=== PATIENT | male | born 1940 | race African-American/Black ===

== ENCOUNTER 2017-09-20 17:32 | Inpatient (IN) | payer MEDICARE ==
[2017-09-20] MEDS ORDERED: HYDRALAZINE HCL INJ/PF 20 MG/1 ML SDV IV ONE (18:21)
--- NOTE | 2017-09-20 18:24 | ER Document Report ---
ED Blood Pressure Problem - General Stated Complaint: BLOOD PRESSURE CONCERN Time Seen by Provider: 09/20/17 18:18 Notes: Patient was referred here from his primary care physician's office because his blood pressure is very high. Patient has a history of high blood pressure and is supposed to be taking clonidine, Norvasc, and some other medications for his blood pressure. Patient says that he has actually been out of all of his blood pressure medicines for the past week. He has no symptoms or complaints. Specifically denies headache, neurologic symptoms or deficits, chest pain, abdominal pain, dizziness, shortness of breath, or any other symptoms. Patient says the only reason he went to see his doctor today is because he is scheduled to fly to [place] on Sunday to attend the high school graduation of his granddaughter and he wanted to make sure everything was okay before he took that trip. He has a history of chronic kidney disease and high blood pressure. When he was seen at his primary care physician's office, he was given 0.1 mg clonidine p.o. and referred here. TRAVEL OUTSIDE OF THE [place] IN LAST 30 DAYS: No - Related Data Allergies/Adverse Reactions: No Known Allergies Allergy (Verified 04/09/12 16:27) Past Medical History - Social History Smoking Status: Unknown if Ever Smoked Cigarette use (# per day): No Drug Abuse: None Family History: Reviewed & Not Pertinent - Past Medical History Cardiac Medical History: Reports: Hx Hypercholesterolemia, Hx Hypertension, Hx Peripheral Vascular Disease Neurological Medical History: Denies: Hx Cerebrovascular Accident Endocrine Medical History: Reports: Hx Diabetes Mellitus Type 2, Hx Hypothyroidism Past Surgical History: Reports: Hx Orthopedic Surgery - Back surgery, Other - 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 EENT: Denies eye, ear, nose or mouth or throat pain or other symptoms. CARDIOVASCULAR: Denies chest pain. RESPIRATORY: Denies cough, chest congestion, or shortness of breath. GASTROINTESTINAL: Denies abdominal pain or nausea, vomiting, or diarrhea. GENITOURINARY: Denies difficulty or painful urinating, urinary frequency, blood in urine. MUSCULOSKELETAL: Denies back or neck pain. Denies joint pain or swelling. SKIN: Denies rash or skin lesions. NEUROLOGICAL: Denies LOC or altered mental status. Denies headache. Denies sensory loss or motor deficits. ALL OTHER SYSTEMS REVIEWED AND NEGATIVE. Physical Exam - Vital signs Vitals: Temp Pulse Resp BP Pulse Ox 97.9 F 100 18 215/113 H 98 09/20/17 17:39 09/20/17 17:39 09/20/17 17:39 09/20/17 17:39 09/20/17 17:39 Interpretation: Hypertensive - Notes Notes: PHYSICAL EXAMINATION: GENERAL: Well-appearing, in no acute distress. Extremely high blood pressure. However, patient looks quite comfortable and has no complaints. HEAD: Atraumatic, normocephalic. EYES: Pupils equal round and reactive to light, extraocular movements intact. ENT: oropharynx clear without exudates. Moist mucous membranes. NECK: Normal range of motion, supple. LUNGS: Breath sounds clear and equal bilaterally. HEART: Regular rate and rhythm without murmurs. ABDOMEN: Soft, nontender. No guarding or rebound. No masses. BACK: No tenderness throughout entire back. EXTREMITIES: Normal range of motion without pain. NEUROLOGICAL: Normal speech, normal gait. Normal sensory, motor, and reflex exams. Awake, alert, and oriented x3. Cranial nerves normal. PSYCH: Normal mood, normal affect. SKIN: Warm, dry, no rashes. Course - Re-evaluation Re-evalutation: 09/20/17 18:42 Discussed with patient's primary care provider, Dr. Fam, and patient will be admitted to [facility] for observation and management of his high blood pressure. Dr. Fma requested the patient received hydralazine 10 mg IV which will be ordered. Also wants a CT of his head and a observation admit to [facility]. - Vital Signs Vital signs: Temp Pulse Resp BP Pulse Ox 97.9 F 100 22 H 183/105 H 96 09/20/17 17:39 09/20/17 17:39 09/20/17 18:45 09/20/17 18:45 09/20/17 18:45 - Laboratory Result Diagrams: 09/20/17 18:42 09/20/17 18:42 Laboratory results interpreted by me: 09/20/17 18:42 WBC 11.1 H Hgb 11.9 L MCV 74 L MCH 22.8 L MCHC 30.9 L RDW 15.5 H Seg Neutrophils % 80.0 H Absolute Neutrophils 8.8 H - EKG Interpretation by Me EKG shows normal: Sinus rhythm Rate: Normal Rhythm: NSR [place]/QRS: LAHB/LAFB Voltage: Consistant with LVH Discharge - Discharge Clinical Impression: Hypertension, Hypertensive urgency Condition: Stable Disposition: ADMITTED OBSERVATION Admitting Provider: Fam Unit Admitted: IMCU Referrals: CARROLL FAM MD [Primary Care Provider] - Follow up as needed
[2017-09-20 18:58] LABS: ABSOLUTE BASOPHILS # (AUTO) 0.1 10^3/uL (0.0-0.2); ABSOLUTE EOSINOPHILS # (AUTO) 0.1 10^3/uL (0.0-0.6); ABSOLUTE LYMPHOCYTES (AUTO) 1.5 10^3/uL (0.5-4.7); ABSOLUTE MONOCYTES (AUTO) 0.6 10^3/uL (0.1-1.4); ABSOLUTE NEUT (AUTO) 8.8 10^3/uL (1.7-8.2); BASOPHILS % (AUTO) 0.8 % (0-2); EOSINOPHILS % (AUTO) 0.8 % (0-6); HEMATOCRIT 38.6 % (37.9-51.0); HEMOGLOBIN 11.9 g/dL (13.5-17.0); LYMPHOCYTES % (AUTO) 13.3 % (13-45); MEAN CORPUSCULAR HEMOGLOBIN 22.8 pg (27.0-33.4); MEAN CORPUSCULAR HGB CONC 30.9 g/dL (32.0-36.0); MEAN CORPUSCULAR VOLUME 74 fl (80-97); MONOCYTES % (AUTO) 5.1 % (3-13); PLATELET COUNT 206 10^3/uL (150-450); RED BLOOD COUNT 5.24 10^6/uL (4.35-5.55); RED CELL DISTRIBUTION WIDTH 15.5 % (11.5-14.0); TOTAL CELLS COUNTED % (AUTO) 100 %; WHITE BLOOD COUNT 11.1 10^3/uL (4.0-10.5)
--- NOTE | 2017-09-20 19:11 | RADIOLOGY REPORT (SQ) ---
EXAM DESCRIPTION: CT HEAD WITHOUT COMPLETED DATE/TIME: 09/20/2017 6:54 pm REASON FOR STUDY: Extreme hypertension COMPARISON: 04/09/2012 TECHNIQUE: Axial images acquired through the brain without intravenous contrast. Images reviewed wi th bone, brain and subdural windows. Images stored on PACS. All CT scanners at this facility use dose modulation, iterative reconstruction, and/or weight based d osing when appropriate to reduce radiation dose to as low as reasonably achievable (ALARA). [facility]: Dose Right [facility]: CareDose [facility]: Dose Right [facility]: Teradose 4D [facility]: [employer] RADIATION DOSE: CT Rad equipment meets quality standard of care and radiation dose reduction techniq ues were employed. CTDIvol: 53.2 mGy. DLP: 1124 mGy-cm. mGy. LIMITATIONS: None. FINDINGS: VENTRICLES: Normal. CEREBRUM: No masses. No hemorrhage. No midline shift. Areas of low density in the white matter mos t likely due to chronic micro-vascular ischemic change. No evidence for acute infarction. CEREBELLUM: No masses. No hemorrhage. No alteration of density. No evidence for acute infarction. EXTRAAXIAL SPACES: Mild age-related involutional change. No fluid collections. No masses. ORBITS AND GLOBE: No intra- or extraconal masses. Normal contour of globe without masses. CALVARIUM: No fracture. PARANASAL SINUSES: No fluid or mucosal thickening. SOFT TISSUES: No mass or hematoma. OTHER: No other significant finding. IMPRESSION: No acute intracranial findings. EVIDENCE OF ACUTE STROKE: No TECHNICAL DOCUMENTATION: JOB ID: [id number] [place]-72 Quality ID # [id number]: Final reports with documentation of one or more dose reduction techniques (e.g., Au tomated exposure control, adjustment of the mA and/or kV according to patient size, use of iterative reconstruction technique) 2010 [employer]- All Rights Reserved Reading location - IP/workstation name: [employer]
--- NOTE | 2017-09-20 19:13 | RADIOLOGY REPORT (SQ) ---
EXAM DESCRIPTION: CHEST SINGLE VIEW COMPLETED DATE/TIME: 09/20/2017 7:01 pm REASON FOR STUDY: Extreme hypertension COMPARISON: None. EXAM PARAMETERS: NUMBER OF VIEWS: One view. TECHNIQUE: Single frontal radiographic view of the chest acquired. RADIATION DOSE: NA LIMITATIONS: None. FINDINGS: LUNGS AND PLEURA: No consolidation, masses or pneumothorax. No pleural effusion. MEDIASTINUM AND HILAR STRUCTURES: Enlarged thoracic aorta contour. HEART AND VASCULAR STRUCTURES: Cardiomegaly. BONES: No acute findings. HARDWARE: None in the chest. OTHER: No other significant finding. IMPRESSION: Enlarged thoracic aorta contour, chronic appearing. No acute pulmonary finding. TECHNICAL DOCUMENTATION: JOB ID: [id number] [place]-72 2010 [employer]- All Rights Reserved Reading location - IP/workstation name: [employer]
[2017-09-20] MEDS ORDERED: ACETAMINOPHEN 325 MG TABLET PO PRN (19:31)
[2017-09-20] MEDS ORDERED: HYDRALAZINE HCL INJ/PF 20 MG/1 ML SDV IV PRN (19:37)
[2017-09-20] MEDS ORDERED: INSULIN LISPRO 100 UNIT/ML 3 ML VIAL SUBCUT PRN (19:45)
[2017-09-20] MEDS ORDERED: DEXTROSE 40% GEL 15 GM TUBE PO PRN ×2 (19:45)
[2017-09-20] MEDS ORDERED: DEXTROSE 50%-WATER 25 GM/50 ML DISP.SYRIN IV PRN ×2 (19:45)
[2017-09-20] MEDS ORDERED: GLUCAGON,HUMAN RECOMB 1 MG INJ IM PRN (19:45)
[2017-09-20 19:47] LABS: APPEARANCE,URINE CLEAR; BILIRUBIN,URINE NEGATIVE (NEGATIVE); COLOR,URINE STRAW; GLUCOSE, URINE NEGATIVE (NEGATIVE); KETONES,URINE NEGATIVE (NEGATIVE); LEUKOCYTE ESTERASE,URINE TRACE (NEGATIVE); NITRITE,URINE NEGATIVE (NEGATIVE); PROTEIN,URINE 30 mg/dL (NEGATIVE); URINE SPECIFIC GRAVITY 1.011; UROBILINOGEN,URINE NEGATIVE mg/dL (<2.0)
[2017-09-20 19:58] LABS: ALANINE AMINOTRANSFERASE 16 U/L (21-72); ALBUMIN 3.7 g/dL (3.5-5.0); ALKALINE PHOSPHATASE 192 U/L (38-126); ANION GAP 12 (5-19); ASPARTATE AMINO TRANSFERASE 14 U/L (17-59); BILIRUBIN,DIRECT 0.3 mg/dL (0.0-0.4); BILIRUBIN,TOTAL 0.4 mg/dL (0.2-1.3); BLOOD UREA NITROGEN 22 mg/dL (7-20); CALCIUM 9.1 mg/dL (8.4-10.2); CARBON DIOXIDE 26 mmol/L (22-30); CHLORIDE 107 mmol/L (98-107); GLUCOSE 57 mg/dL (75-110); POTASSIUM 3.5 mmol/L (3.6-5.0); TOTAL PROTEIN 6.9 g/dL (6.3-8.2)
--- NOTE | 2017-09-20 20:04 | EKG REPORT ---
SEVERITY:- ABNORMAL ECG - SINUS RHYTHM LEFT ANTERIOR FASCICULAR BLOCK LEFT VENTRICULAR HYPERTROPHY : Confirmed by: Damon Morocho MD 20-Sep-2017 20:03:46
--- NOTE | 2017-09-20 20:06 | PDOC H&P ---
History of Present Illness Admission Date/PCP: 09/20/17 19:11 CARROLL FAM MD Patient complains of: Uncontrolled hypertension History of Present Illness: DONTRELL CORONADO is a 76 year old male 7aryear-old male presents to my office after one yearFor refill medicationS and pt bp was 220/120 and pt was completely a symptomatic Initially patients do not want to come to the hospitalBut after talking to the patients daughter patients agree to come to the ER Patient also have a chronic kidney disease and chf useto seenephroligy and Patient not seen any doctor since last November pt is a very non-compliance with the diet and taking the medications Patient was given one dose of clonidine in 0.1 mg in my office And pieces purpose of coming down to 190 rangeAnd EMS was called in business brought to the emergency department Past Medical History Cardiac Medical History: Reports: Congestive Heart Failure, DVT, Hyperlipidema, Hypertension, Peripheral Vascular Disease Endocrine Medical History: Reports: Diabetes Mellitus Type 2, Hypothyroidism Renal/ Medical History: Reports: Chronic Kidney Disease Hematology: Reports: Anemia Past Surgical History Past Surgical History: Reports: Orthopedic Surgery - Back surgery, Vascular Surgery - Aneurysm Lt calf, Other - 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 Social History Smoking Status: Unknown if Ever Smoked - Advance Directive Resuscitation Status: Full Code Family History Family History: Reviewed & Not Pertinent Parental Family History Reviewed: Yes Children Family History Reviewed: Yes Sibling(s) Family History Reviewed.: Yes Medication/Allergy Home Medications: Allopurinol [Zyloprim] 300 mg PO DAILY 09/20/17 Amlodipine Besylate [Norvasc 10 mg Tablet] 10 mg PO DAILY 09/20/17 Aspirin [Aspirin EC] 81 mg PO DAILY 09/20/17 Benazepril HCl [Lotensin 20 mg Tablet] 20 mg PO DAILY 09/20/17 Clonidine HCl [Catapres 0.2 mg Tablet] 0.2 mg PO Q12 09/20/17 Clopidogrel Bisulfate [Plavix 75 mg Tablet] 75 mg PO DAILY 09/20/17 Docusate Sodium [Colace 100 mg Capsule] 100 mg PO DAILY 09/20/17 Ferrous Sulfate [Feosol 325 mg Tablet] 325 mg PO TID 09/20/17 Glipizide [Glucotrol 5 mg Tablet] 5 mg PO BID 09/20/17 Hydralazine HCl [Apresoline 50 mg Tablet] 50 mg PO Q8 09/20/17 Levothyroxine Sodium [Synthroid 0.025 mg Tablet] 0.025 mg PO Q6AM 09/20/17 Metoprolol Tartrate [Lopressor 25 mg Tablet] 25 mg PO Q12 09/20/17 [place]-3 Acid Ethyl Esters [Lovaza 1 gm Capsule] 2 gm PO DAILY 09/20/17 Pantoprazole Sodium [Protonix] 40 mg PO DAILY 09/20/17 Potassium Chloride [Klor-Con 10 Meq Tablet.sa] 10 meq PO DAILY 09/20/17 Simvastatin [Zocor 20 mg Tablet] 20 mg PO QHS 09/20/17 Allergies/Adverse Reactions: No Known Allergies Allergy (Verified 04/09/12 16:27) Review of Systems Constitutional: ABSENT: chills, fever(s), headache(s), weight gain, weight loss Eyes: ABSENT: visual disturbances Ears: ABSENT: hearing changes Cardiovascular: ABSENT: chest pain, dyspnea on exertion, edema, orthropnea, palpitations Respiratory: ABSENT: cough, hemoptysis Gastrointestinal: ABSENT: abdominal pain, constipation, diarrhea, hematemesis, hematochezia, nausea, vomiting Genitourinary: ABSENT: dysuria, hematuria Musculoskeletal: ABSENT: joint swelling Integumentary: ABSENT: rash, wounds Neurological: ABSENT: abnormal gait, abnormal speech, confusion, dizziness, focal weakness, syncope Psychiatric: ABSENT: anxiety, depression, homidical ideation, suicidal ideation Endocrine: ABSENT: cold intolerance, heat intolerance, menstrual abnormalities, polydipsia, polyuria Hematologic/Lymphatic: ABSENT: easy bleeding, easy bruising, lymphadenopathy Physical Exam Vital Signs: Temp Pulse Resp BP Pulse Ox 97.9 F 100 19 184/105 H 97 09/20/17 17:39 09/20/17 17:39 09/20/17 19:30 09/20/17 19:30 09/20/17 19:30 General appearance: PRESENT: no acute distress, well-developed, well-nourished Head exam: PRESENT: atraumatic, normocephalic Eye exam: PRESENT: conjunctiva pink, EOMI, PERRLA. ABSENT: scleral icterus Ear exam: PRESENT: normal external ear exam Mouth exam: PRESENT: moist, tongue midline Neck exam: PRESENT: full ROM. ABSENT: carotid bruit, JVD, lymphadenopathy, thyromegaly Respiratory exam: PRESENT: clear to auscultation richie Cardiovascular exam: PRESENT: RRR. ABSENT: diastolic murmur, rubs, systolic murmur Pulses: PRESENT: normal dorsalis pedis pul, +2 pedal pulses bilateral Vascular exam: PRESENT: normal capillary refill GI/Abdominal exam: PRESENT: normal bowel sounds, soft. ABSENT: distended, guarding, mass, organolmegaly, rebound, tenderness Rectal exam: PRESENT: deferred Extremities exam: ABSENT: full ROM, left AKA, right AKA, left BKA, right BKA, calf tenderness, joint swelling, pedal edema, tenderness, other Musculoskeletal exam: PRESENT: ambulatory Neurological exam: PRESENT: alert, awake, oriented to person, oriented to place , oriented to time, oriented to situation, CN II-XII grossly intact. ABSENT: motor sensory deficit Psychiatric exam: PRESENT: appropriate affect, normal mood. ABSENT: homicidal ideation, suicidal ideation Skin exam: PRESENT: dry, intact, warm. ABSENT: cyanosis, rash Results Impressions: Chest X-Ray 09/20/17 18:19 IMPRESSION: Enlarged thoracic aorta contour, chronic appearing. No acute pulmonary finding. Head CT 09/20/17 18:21 IMPRESSION: No acute intracranial findings. EVIDENCE OF ACUTE STROKE: No Assessment & Plan - Diagnosis (1) Hypertensive urgency Is this a current diagnosis for this admission?: Yes Plan: Admit in imcu and and slowly bring the blood pressure is down in concut doctor René (2) Congestive heart failure Qualifiers: Heart failure type: diastolic Heart failure chronicity: chronic Qualified Code(s): I50.32 - Chronic diastolic (congestive) heart failure Is this a current diagnosis for this admission?: Yes Plan: Get a echo cardio gram and consult cardiology (3) PAD (peripheral artery disease) Is this a current diagnosis for this admission?: Yes (4) Hyperlipidemia Qualifiers: Hyperlipidemia type: other hyperlipidemia Qualified Code(s): E78.4 - Other hyperlipidemia Is this a current diagnosis for this admission?: Yes (5) Type 2 diabetes mellitus Qualifiers: Diabetes mellitus complication status: with unspecified complications Is this a current diagnosis for this admission?: Yes (6) Noncompliance Is this a current diagnosis for this admission?: Yes - Time Time Spent: 30 to 50 Minutes Medications reviewed and adjusted accordingly: Yes Anticipated discharge: Home Within: Other - Inpatient Certification Medical Necessity: Need Close Monitoring Due to Risk of Patient Decompensation Post Hospital Care: D/C [employer]st Documentation - Plan Summary Plan Summary: Very extensive discussions with the patients daughter in [place] and patient with this is on the uncontrol hypertension and noncompliance of all medication. Patient is highrisk up a complication include a cardiovascular and cva
[2017-09-20 20:09] LABS: CREATINE KINASE MB 1.17 ng/mL (<4.55); TROPONIN I 0.013 ng/mL
[2017-09-20] MEDS: METOPROLOL TARTRATE 25 MG TABLET PO SCH (21:21)
[2017-09-20] MEDS: CLONIDINE HCL 0.1 MG TABLET PO SCH (21:22)
[2017-09-20] MEDS ORDERED: SIMVASTATIN 10 MG TABLET PO SCH (22:00)
[2017-09-20] MEDS ORDERED: AMLODIPINE BESYLATE 5 MG TABLET PO SCH (22:00)
[2017-09-20] MEDS ORDERED: FAMOTIDINE 20 MG TABLET PO SCH (22:00)
[2017-09-21 04:56] LABS: ABSOLUTE BASOPHILS # (AUTO) 0.1 10^3/uL (0.0-0.2); ABSOLUTE EOSINOPHILS # (AUTO) 0.2 10^3/uL (0.0-0.6); ABSOLUTE LYMPHOCYTES (AUTO) 1.2 10^3/uL (0.5-4.7); ABSOLUTE MONOCYTES (AUTO) 0.5 10^3/uL (0.1-1.4); ABSOLUTE NEUT (AUTO) 5.6 10^3/uL (1.7-8.2); EOSINOPHILS % (AUTO) 2.4 % (0-6); HEMATOCRIT 37.5 % (37.9-51.0); HEMOGLOBIN 11.6 g/dL (13.5-17.0); LYMPHOCYTES % (AUTO) 16.2 % (13-45); MEAN CORPUSCULAR HEMOGLOBIN 22.7 pg (27.0-33.4); MEAN CORPUSCULAR HGB CONC 30.9 g/dL (32.0-36.0); MEAN CORPUSCULAR VOLUME 73 fl (80-97); MONOCYTES % (AUTO) 6.3 % (3-13); PLATELET COUNT 177 10^3/uL (150-450); RED BLOOD COUNT 5.12 10^6/uL (4.35-5.55); RED CELL DISTRIBUTION WIDTH 15.3 % (11.5-14.0); SEGMENTED NEUTROPHILS % (AUTO) 74.1 % (42-78); TOTAL CELLS COUNTED % (AUTO) 100 %; WHITE BLOOD COUNT 7.6 10^3/uL (4.0-10.5)
[2017-09-21 05:13] LABS: ANION GAP 10 (5-19); BLOOD UREA NITROGEN 22 mg/dL (7-20); CALCIUM 8.9 mg/dL (8.4-10.2); CARBON DIOXIDE 26 mmol/L (22-30); CHLORIDE 108 mmol/L (98-107); GLUCOSE 98 mg/dL (75-110); POTASSIUM 3.8 mmol/L (3.6-5.0)
[2017-09-21] MEDS ORDERED: LANSOPRAZOLE 30 MG TAB.RAP.DR PO SCH (06:00)
[2017-09-21] MEDS ORDERED: LEVOTHYROXINE SODIUM 0.025 MG TABLET PO SCH (06:00)
[2017-09-21 08:52] VITALS: BP 159/93
--- NOTE | 2017-09-21 09:28 | RADIOLOGY REPORT (SQ) ---
EXAM DESCRIPTION: CTA CHEST COMPLETED DATE/TIME: 09/21/2017 9:10 am REASON FOR STUDY: enlarge thoracic aorta I50.30 UNSPECIFIED DIASTOLIC (CONGESTIVE) HEART FAILURE COMPARISON: AP chest 09/20/2017 TECHNIQUE: CT angio scan of the chest performed using helical scanning technique with dynamic intrav enous contrast injection. Images reviewed with lung, soft tissue and bone windows. Reconstructed co santos and sagittal MPR images reviewed. Additional 3 dimensional post-processing performed to develop Maximal Intensity Projection images ([place] P) through the pulmonary arteries and thoracic aorta. All images stored on PACS. All CT scanners at this facility use dose modulation, iterative reconstruction, and/or weight based d osing when appropriate to reduce radiation dose to as low as reasonably achievable (ALARA). [facility]: Dose Right [facility]: CareDose [facility]: Dose Right [facility]: Teradose 4D [facility]: [employer] CONTRAST TYPE AND DOSE: contrast/concentration: Isovue 370.00 mg/ml; Total Contrast Delivered: 65.0 ml; Total Saline Delivered: 80.0 ml Contrast bolus optimized for the pulmonary arteries. Not diagnostic for the aorta. RENAL FUNCTION: Creatinine 1.2 RADIATION DOSE: CT Rad equipment meets quality standard of care and radiation dose reduction techniq ues were employed. CTDIvol: 1.9 - 18.8 mGy. DLP: 649 mGy-cm. . LIMITATIONS: None. FINDINGS: Distal to the takeoff of the left subclavian artery, a descending aorta dissecting aneurys m is present continuing through to the abdominal aorta in the field of view. The proximal descending thoracic aorta (just distal to the left subclavian artery origin) measures 5. 8 cm in diameter. Mid thoracic descending aorta 5.4 cm in diameter, distal descending thoracic aorta 5.1 cm in diameter. At the aortic hiatus, the aorta measures 4.5 cm in diameter. The thoracic aortic dissection does not appear to involve the great vessels or ascending thoracic aor ta. Ascending aorta measures 4.1 cm in greatest diameter. The dissection extends into the celiac origin on axial image 122, with the majority of inflow to the celiac artery coming from the true lumen. The superior mesenteric artery and right renal artery arise off the true lumen of the upper abdominal aorta. The left renal artery originates off the false lumen of the upper abdominal aorta. Left kidney profu sheryl is decreased compared to the right, with poor contrast enhancement during the arterial contrast bolus. There is left ventricular hypertrophy with thickening of the left ventricular myocardium on axial peter ges 64-76. No pericardial effusion There is trace left pleural fluid which measures near water density. This report was called to Dr. Fam as a critical finding, 0900 hours 09/21/2017. LUNGS AND PLEURA: Trace left pleural fluid. No pneumothorax. No right pleural effusion. No focal i nfiltrates. AORTA AND GREAT VESSELS: As above HEART: As above No significant coronary artery calcifications. PULMONARY ARTERIES: Limited contrast bolus. No gross proximal pulmonary artery emboli HILAR AND MEDIASTINAL STRUCTURES: No identified masses or abnormal nodes. HARDWARE: None in the chest. UPPER ABDOMEN: As above THYROID AND OTHER SOFT TISSUES: No masses. No adenopathy. BONES: No acute or significant finding. 3D MIPS: Confirm above findings. 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 COMMENT: Pertinent findings on the imaging study reported as a CRITICAL RESULT to CARROLL FAM MD at09:00 on 09/21/2017. Category of Critical Result: Dissecting descending thoracic aortic aneurysm Quality ID # [id number]: Final reports with documentation of one or more dose reduction techniques (e.g., Au tomated exposure control, adjustment of the mA and/or kV according to patient size, use of iterative reconstruction technique) TECHNICAL DOCUMENTATION: JOB ID: [id number] [employer]- All Rights Reserved Reading location - IP/workstation name: [email or web address]
[2017-09-21] MEDS ORDERED: LABETALOL HCL INJ 20 MG/4 ML DISP.SYRIN IV ONE (09:32)
[2017-09-21] MEDS: METOPROLOL TARTRATE 25 MG TABLET PO SCH (09:40)
[2017-09-21] MEDS: CLONIDINE HCL 0.1 MG TABLET PO SCH (09:41)
[2017-09-21] MEDS ORDERED: OMEGA-3 ACID ETHYL ESTERS 1 GM CAPSULE PO SCH (10:00)
[2017-09-21] MEDS ORDERED: ALLOPURINOL 300 MG TABLET PO SCH (10:00)
[2017-09-21] MEDS ORDERED: DOCUSATE SODIUM 100 MG CAPSULE PO SCH ×2 (10:00)
[2017-09-21] MEDS ORDERED: ASPIRIN 81 MG TABLET, ENT COATED PO SCH (10:00)
[2017-09-21] MEDS ORDERED: GLIPIZIDE 5 MG TABLET PO SCH (10:00)
[2017-09-21] MEDS ORDERED: FERROUS SULFATE 325 MG TABLET PO SCH (10:00)
[2017-09-21] MEDS ORDERED: CLOPIDOGREL BISULFATE 75 MG TABLET PO SCH (10:00)
[2017-09-21] MEDS ORDERED: ENOXAPARIN SODIUM INJ 30 MG/0.3 ML DISP.SYRIN SUBCUT SCH (10:00)
--- NOTE | 2017-09-21 10:16 | PDOC TRANSFER SUMMARY ---
General Admission Date/PCP: 09/20/17 19:31 CARROLL FAM MD Transfer Date: 09/21/17 Accepting Facility: [facility] Resuscitation Status: Full Code - Transfer Diagnosis (1) Hypertensive urgency Is this a current diagnosis for this admission?: Yes Diagnosis Summary: Routine general exam currently Dr. Merritt put the labetalol drip (2) Congestive heart failure Is this a current diagnosis for this admission?: Yes (3) PAD (peripheral artery disease) Is this a current diagnosis for this admission?: Yes (4) Hyperlipidemia Is this a current diagnosis for this admission?: Yes (5) Type 2 diabetes mellitus Is this a current diagnosis for this admission?: Yes (6) Noncompliance Is this a current diagnosis for this admission?: Yes (7) Dissecting aortic aneurysm, thoracic Is this a current diagnosis for this admission?: Yes Diagnosis Summary: As per discussed with the cardiothoracic department and the CT surgeon Dr. Eduardo Galeana at [facility] And patient is currently completely asymptomatic - Transfer Medications Home Medications: Allopurinol [Zyloprim] 300 mg PO DAILY 09/20/17 Amlodipine Besylate [Norvasc 10 mg Tablet] 10 mg PO DAILY 09/20/17 Aspirin [Aspirin EC] 81 mg PO DAILY 09/20/17 Benazepril HCl [Lotensin 20 mg Tablet] 20 mg PO DAILY 09/20/17 Clonidine HCl [Catapres 0.2 mg Tablet] 0.2 mg PO Q12 09/20/17 Clopidogrel Bisulfate [Plavix 75 mg Tablet] 75 mg PO DAILY 09/20/17 Docusate Sodium [Colace 100 mg Capsule] 100 mg PO DAILY 09/20/17 Ferrous Sulfate [Feosol 325 mg Tablet] 325 mg PO TID 09/20/17 Glipizide [Glucotrol 5 mg Tablet] 5 mg PO BID 09/20/17 Hydralazine HCl [Apresoline 50 mg Tablet] 50 mg PO Q8 09/20/17 Levothyroxine Sodium [Synthroid 0.025 mg Tablet] 0.025 mg PO Q6AM 09/20/17 Metoprolol Tartrate [Lopressor 25 mg Tablet] 25 mg PO Q12 09/20/17 [place]-3 Acid Ethyl Esters [Lovaza 1 gm Capsule] 2 gm PO DAILY 09/20/17 Pantoprazole Sodium [Protonix] 40 mg PO DAILY 09/20/17 Potassium Chloride [Klor-Con 10 Meq Tablet.sa] 10 meq PO DAILY 09/20/17 Simvastatin [Zocor 20 mg Tablet] 20 mg PO QHS 09/20/17 Furosemide [Furosemide] 20 mg PO DAILY 09/21/17 Transfer Medications: Current Medications Acetaminophen (Tylenol 325 Mg Tablet) 650 mg PO Q4HP PRN PRN Reason: FOR PAIN Stop: 10/20/17 19:30 Allopurinol (Zyloprim 300 Mg Tablet) 300 mg PO DAILY MEHREEN Stop: 10/21/17 09:59 Aspirin (Ecotrin 81 Mg Ec Tablet) 81 mg PO DAILY MEHREEN Stop: 10/21/17 09:59 Clonidine (Catapres 0.1 Mg Tablet) 0.1 mg PO Q12 MEHREEN Stop: 10/20/17 21:59 Last Admin: 09/21/17 09:41 Dose: 0.1 mg Clopidogrel Bisulfate (Plavix 75 Mg Tablet) 75 mg PO DAILY MEHREEN Stop: 10/21/17 09:59 Dextrose (Dextrose Inj 50% Syringe (25 Gm/50 Ml)) 12.5 gm IV PRN PRN; Protocol PRN Reason: FOR BG 50-69 IN ALERT PATIENT Stop: 10/20/17 19:44 Dextrose (Dextrose Inj 50% Syringe (25 Gm/50 Ml)) 25 gm IV PRN PRN; Protocol PRN Reason: PER PROTOCOL Stop: 10/20/17 19:44 Docusate Sodium (Colace 100 Mg Capsule) 100 mg PO DAILY MEHREEN Stop: 10/21/17 09:59 Docusate Sodium (Colace 100 Mg Capsule) 100 mg PO DAILY MEHREEN Stop: 10/21/17 09:59 Enoxaparin Sodium (Lovenox Inj 30 Mg/0.3 Ml Disp.Syrin) 30 mg SUBCUT DAILY MEHREEN Stop: 10/21/17 09:59 Famotidine (Pepcid 20 Mg Tablet) 20 mg PO Q12 MEHREEN Stop: 10/20/17 21:59 Last Admin: 09/20/17 21:22 Dose: 20 mg Ferrous Sulfate (Feosol 325 Mg Tablet) 325 mg PO TID MEHREEN Stop: 10/21/17 09:59 Glipizide (Glucotrol 5 Mg Tablet) 5 mg PO BID MEHREEN Stop: 10/21/17 09:59 Glucagon (Glucagen Inj 1 Mg Vial) 1 mg IM PRN PRN; Protocol PRN Reason: Evaluate for BG < 70 Stop: 10/20/17 19:44 Glucose (Glutose 40% Gel 15 Gm Tube) 15 gm PO PRN PRN; Protocol PRN Reason: FOR BG 50-69 IN ALERT PATIENT Stop: 10/20/17 19:44 Glucose (Glutose 40% Gel 15 Gm Tube) 30 gm PO PRN PRN; Protocol PRN Reason: FOR BG < 50 IN ALERT PATIENT Stop: 10/20/17 19:44 Hydralazine HCl (Apresoline Inj/Pf 20 Mg/1 Ml Sdv) 10 mg IV Q4HP PRN PRN Reason: GIVE FOR SBP > [] Stop: 10/20/17 19:36 Insulin Human Lispro (Humalog Insulin 100 Unit/1 Ml 3 Ml Vial) 0 - 12 unit SUBCUT ACHSP PRN; Protocol PRN Reason: PER PROTOCOL Stop: 10/20/17 19:44 Lansoprazole (Prevacid 30 Mg Odt Tablet) 30 mg PO Q6AM MEHREEN Stop: 10/21/17 05:59 Last Admin: 09/21/17 05:47 Dose: 30 mg Levothyroxine Sodium (Synthroid 0.025 Mg Tablet) 0.025 mg PO Q6AM MEHREEN Stop: 10/21/17 05:59 Last Admin: 09/21/17 05:48 Dose: 0.025 mg Metoprolol Tartrate (Lopressor 25 Mg Tablet) 25 mg PO Q12 MEHREEN Stop: 10/20/17 21:59 Last Admin: 09/21/17 09:40 Dose: 25 mg [id number] Ethyl Esters (Lovaza 1 Gm Capsule) 2 gm PO DAILY MEHREEN Stop: 10/21/17 09:59 Simvastatin (Zocor 10 Mg Tablet) 20 mg PO QHS MEHREEN Stop: 10/20/17 21:59 Last Admin: 09/20/17 21:22 Dose: 20 mg - Allergies Allergies/Adverse Reactions: No Known Allergies Allergy (Verified 04/09/12 16:27) - Diet/Activity Discharge Diet: Cardiac, Diabetic Hospital Course Hospital Course: This is a 76-year-old male very noncompliance came to the office yesterday with the blood pressure was 220/110 initially patient refused to go to the hospital patient was completely asymptomatic and very extensive discussions with the patient's daughter and then patients agree to go to the hospital and patients went to the emergency departmentPatient is giving the clonidine and hydralazine and patient's blood pressure is coming down to the 190 range and patient admitting in the hospital for further evaluations In the morning patient's blood pressure is currently 160 range patient still completely asymptomatic but patient have a all other workup is ordered including the CT of the head was negative and patient did a chest x-ray done with so some enlarged thoracic aorta and order the CT angiogramWith so that dissecting thoracic aneurysms Patient's denied any chest pain denied any shortness of the breath Patient at this point set discussed with the CT surgeon in [place] and transfer and patient's trip to the ICU for close monitoring and discussed with the Dr. Merritt and put on the labatoll drip to control the blood pressure This with the patient and the daughter she lives in [place] understand very well Patient also have history of the peripheral vascular disease and he used to see a vascular surgeon at [facility] Physical Exam Vital Signs: Temp Pulse Resp BP Pulse Ox 97.8 F 70 18 159/93 H 97 09/21/17 07:18 09/21/17 07:18 09/21/17 07:18 09/21/17 07:18 09/21/17 07:18 Intake & Output 09/20/17 09/21/17 09/22/17 06:59 06:59 06:59 Intake Total 420 Output Total 350 Balance 70 General appearance: PRESENT: no acute distress, well-developed, well-nourished Head exam: PRESENT: atraumatic, normocephalic Eye exam: PRESENT: conjunctiva pink, EOMI, PERRLA. ABSENT: scleral icterus Ear exam: PRESENT: normal external ear exam Mouth exam: PRESENT: moist, tongue midline Neck exam: ABSENT: carotid bruit, JVD, lymphadenopathy, thyromegaly Respiratory exam: PRESENT: clear to auscultation richie. ABSENT: rales, rhonchi, wheezes Cardiovascular exam: PRESENT: RRR. ABSENT: diastolic murmur, rubs, systolic murmur Pulses: PRESENT: normal dorsalis pedis pul Vascular exam: PRESENT: normal capillary refill GI/Abdominal exam: PRESENT: normal bowel sounds, soft. ABSENT: distended, guarding, mass, organolmegaly, rebound, tenderness Rectal exam: PRESENT: deferred Extremities exam: PRESENT: full ROM. ABSENT: calf tenderness, clubbing, pedal edema Neurological exam: PRESENT: alert, awake, oriented to person, oriented to place , oriented to time, oriented to situation, CN II-XII grossly intact. ABSENT: motor sensory deficit Psychiatric exam: PRESENT: appropriate affect, normal mood. ABSENT: homicidal ideation, suicidal ideation Skin exam: PRESENT: dry, intact, warm. ABSENT: cyanosis, rash Results Laboratory Results: 09/21/17 04:40 09/21/17 04:40 09/21/17 09/21/17 04:40 04:40 WBC 7.6 RBC 5.12 Hgb 11.6 L Hct 37.5 L MCV 73 L MCH 22.7 L MCHC 30.9 L RDW 15.3 H Plt Count 177 Seg Neutrophils % 74.1 Lymphocytes % 16.2 Monocytes % 6.3 Eosinophils % 2.4 Basophils % 1.0 Absolute Neutrophils 5.6 Absolute Lymphocytes 1.2 Absolute Monocytes 0.5 Absolute Eosinophils 0.2 Absolute Basophils 0.1 Sodium 144.0 Potassium 3.8 Chloride 108 H Carbon Dioxide 26 Anion Gap 10 BUN 22 H Creatinine 1.17 Est GFR ( Amer) > 60 Est GFR (Non-Af Amer) > 60 Glucose 98 Calcium 8.9 Impressions: Chest X-Ray 09/20/17 18:19 IMPRESSION: Enlarged thoracic aorta contour, chronic appearing. No acute pulmonary finding. Head CT 09/20/17 18:21 IMPRESSION: No acute intracranial findings. EVIDENCE OF ACUTE STROKE: No Chest/Abdomen CTA 09/21/17 00:00 IMPRESSION: Descending thoracic aortic dissecting aneurysm extending into the upper abdominal visceral vessels. Plan Time Spent: Greater than 30 Minutes - Patient's currently close monitor in ICU currently asymptomatic and the patient's transferred to the tertiary centers
--- NOTE | 2017-09-21 12:31 | PDOC CONSULTATION ---
Consultation Consult Date: 09/21/17 Consult reason:: Hypertension emergency and dissecting aortic aneurysm History of Present Illness Admission Date/PCP: 09/20/17 19:31 CARROLL FAM MD History of Present Illness: DONTRELL CORONADO is a 76 year old maleWith a long-standing history of diabetes mellitus hypertension and severe noncompliance was admitted yesterday by Dr. Fam for severe uncontrolled hypertension.Patient had seen Dr. Fam for a routine visit and was found to be severely hypotensive and completely asymptomatic. He admits to severe noncompliance with his medications.His initial admission blood pressures were around 230/120 approximately. He was admitted and put on appropriate medications and he has responded well.This morning his blood pressures was around 150 systolic.He remained completely asymptomatic.Denies any history of headaches, chest pain or shortness of breath. No abdominal pains. Incidental chest x-ray showed a widened mediastinum. This prompted Dr. Fam to order a CT angiogram which showed that he had a dissecting descending thoracic aortic aneurysm all the way to the upper abdominal vessels.Patient was at this point seen by me and after further discussions was transferred to the ICU. He was given IV labetalol and infusion and then arrangements have been made by Dr. Fam for transferring him to [facility] for urgent immediate care.I explained to the patient at great length about his current situation and the severity of the problems. He understands and he did have a few questions.They are all answered to his satisfaction. Past Medical History Cardiac Medical History: Reports: DVT, Hyperlipidemia, Hypertension-primary, Peripheral Vascular Disease Endocrine Medical History: Reports: Diabetes Mellitus Type 2, Hypothyroidism Renal/ Medical History: Reports: Chronic Kidney Disease Stage II Psychiatric Medical History: Denies: Depression Past Surgical History Past Surgical History: Reports: Orthopedic Surgery - Back surgery, Vascular Surgery - Aneurysm Lt calf, Other - 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 Social History Smoking Status: Never Smoker Frequency of Alcohol Use: Rare Hx Recreational Drug Use: No - Advance Directive Resuscitation Status: Full Code Family History Parental Family History Reviewed: Yes - Negative for ESRD. Children Family History Reviewed: No Sibling(s) Family History Reviewed.: No Medication/Allergy Home Medications: Allopurinol [Zyloprim] 300 mg PO DAILY 09/20/17 Amlodipine Besylate [Norvasc 10 mg Tablet] 10 mg PO DAILY 09/20/17 Aspirin [Aspirin EC] 81 mg PO DAILY 09/20/17 Benazepril HCl [Lotensin 20 mg Tablet] 20 mg PO DAILY 09/20/17 Clonidine HCl [Catapres 0.2 mg Tablet] 0.2 mg PO Q12 09/20/17 Clopidogrel Bisulfate [Plavix 75 mg Tablet] 75 mg PO DAILY 09/20/17 Docusate Sodium [Colace 100 mg Capsule] 100 mg PO DAILY 09/20/17 Ferrous Sulfate [Feosol 325 mg Tablet] 325 mg PO TID 09/20/17 Glipizide [Glucotrol 5 mg Tablet] 5 mg PO BID 09/20/17 Hydralazine HCl [Apresoline 50 mg Tablet] 50 mg PO Q8 09/20/17 Levothyroxine Sodium [Synthroid 0.025 mg Tablet] 0.025 mg PO Q6AM 09/20/17 Metoprolol Tartrate [Lopressor 25 mg Tablet] 25 mg PO Q12 09/20/17 [place]-3 Acid Ethyl Esters [Lovaza 1 gm Capsule] 2 gm PO DAILY 09/20/17 Pantoprazole Sodium [Protonix] 40 mg PO DAILY 09/20/17 Potassium Chloride [Klor-Con 10 Meq Tablet.sa] 10 meq PO DAILY 09/20/17 Simvastatin [Zocor 20 mg Tablet] 20 mg PO QHS 09/20/17 Furosemide [Furosemide] 20 mg PO DAILY 09/21/17 Allergies/Adverse Reactions: No Known Allergies Allergy (Verified 04/09/12 16:27) Review of Systems Constitutional: ABSENT: fever(s), headache(s), night sweats, weakness Cardiovascular: ABSENT: chest pain, dyspnea on exertion, edema, orthropnea, palpitations Respiratory: ABSENT: dyspnea, hemoptysis Gastrointestinal: ABSENT: abdominal pain, diarrhea, dysphagia, heartburn Neurological: ABSENT: abnormal movements, abnormal speech, confusion, convulsions, focal weakness, frequent falls Endocrine: ABSENT: cold intolerance Hematologic/Lymphatic: ABSENT: easy bleeding, easy bruising Physical Exam Vital Signs: Temp Pulse Resp BP Pulse Ox 97.8 F 70 18 159/93 H 97 09/21/17 10:24 09/21/17 10:24 09/21/17 10:24 09/21/17 10:24 09/21/17 10:24 Intake & Output 09/20/17 09/21/17 09/22/17 06:59 06:59 06:59 Intake Total 420 Output Total 350 Balance 70 General appearance: PRESENT: no acute distress Eye exam: PRESENT: conjunctiva pink, EOMI Ear exam: PRESENT: normal external ear exam Mouth exam: PRESENT: moist, neck supple Neck exam: ABSENT: lymphadenopathy, meningismus, tenderness, thyromegaly, tracheal deviation Respiratory exam: PRESENT: clear to auscultation richie. ABSENT: crackles, rhonchi Cardiovascular exam: PRESENT: +S1, +S2, systolic murmur Pulses: PRESENT: normal carotid pulses, normal radial pulses, normal femoral pulses GI/Abdominal exam: PRESENT: normal bowel sounds, soft. ABSENT: diminished bowel sounds, organomegaly, tenderness Extremities exam: ABSENT: pedal edema Neurological exam: PRESENT: alert, awake, oriented to person, oriented to place , oriented to time Skin exam: PRESENT: dry. ABSENT: mottled Results Laboratory Results: 09/21/17 04:40 09/21/17 04:40 09/21/17 09/21/17 04:40 04:40 WBC 7.6 RBC 5.12 Hgb 11.6 L Hct 37.5 L MCV 73 L MCH 22.7 L MCHC 30.9 L RDW 15.3 H Plt Count 177 Seg Neutrophils % 74.1 Lymphocytes % 16.2 Monocytes % 6.3 Eosinophils % 2.4 Basophils % 1.0 Absolute Neutrophils 5.6 Absolute Lymphocytes 1.2 Absolute Monocytes 0.5 Absolute Eosinophils 0.2 Absolute Basophils 0.1 Sodium 144.0 Potassium 3.8 Chloride 108 H Carbon Dioxide 26 Anion Gap 10 BUN 22 H Creatinine 1.17 Est GFR ( Amer) > 60 Est GFR (Non-Af Amer) > 60 Glucose 98 Calcium 8.9 Impressions: Chest X-Ray 09/20/17 18:19 IMPRESSION: Enlarged thoracic aorta contour, chronic appearing. No acute pulmonary finding. Head CT 09/20/17 18:21 IMPRESSION: No acute intracranial findings. EVIDENCE OF ACUTE STROKE: No Chest/Abdomen CTA 09/21/17 00:00 IMPRESSION: Descending thoracic aortic dissecting aneurysm extending into the upper abdominal visceral vessels. Assessment & Plan - Diagnosis (1) Dissecting aortic aneurysm, thoracic Is this a current diagnosis for this admission?: Yes Plan: Incidental finding based on a widened mediastinum on his chest x-ray. Patient completely asymptomatic. Patient blood pressures improved compared to yesterday when he was quite high.Discussions were done with the patient and Dr. Fma patient has been begun on IV labetalol and transferred to the ICU while awaiting transfer to tertiary care immediately.Meanwhile he was explained to her about the diagnosis complications, pathology and prognosis. (2) Hypertensive urgency Is this a current diagnosis for this admission?: Yes Plan: Markedly improved. However given his incidental finding of dissecting descending thoracic aortic aneurysm patient being transferred to ICU started on labetalol infusions while awaiting transfer to tertiary care. Advised patient about noncompliance and the consequences. (3) Noncompliance Is this a current diagnosis for this admission?: Yes Plan: Discussed briefly about the consequences of noncompliance in the face of hypertension and diabetes. (4) Type 2 diabetes mellitus Qualifiers: Diabetes mellitus complication status: with unspecified complications Is this a current diagnosis for this admission?: Yes Plan: Advised on tight control.
--- NOTE | 2017-09-21 20:19 | PDOC CONSULTATION ---
Consultation Consult Date: 09/21/17 Attending physician:: CARROLL FAM Consult reason:: Aortic dissection History of Present Illness Admission Date/PCP: 09/20/17 19:31 CARROLL FAM MD Patient complains of: Severe hypertension History of Present Illness: DONTRELL CORONADO is a 76 year old male was admitted through Dr. Fam's office with severe hypertension. On repeated questioning patient denied any chest pain. A chest x-ray had shown widened mediastinum which subsequently was followed with a CTA of the chest. This was positive for dissecting aneurysm. I was asked to help with management while a transfer was pending to [facility]. When I saw the patient this morning, on repeated questioning he denied any chest pain. His blood pressure was noted to be elevated with have BP of 200/100. Patient was noted to be not short of breath. CT scan was reviewed and basically confirms presence of dissection. It was felt that aggressive management of blood pressure is indicated. Nurse was ordered to give labetalol 20 mg IV. Which was given almost immediately. Patient also now been transferred to the unit. I have asked the unit nurse to start esmolol drip per protocol. Patient also received clonidine, regular dose and metoprolol succinate regular dose. I did ask nurses to hold the Norvasc. A 2D echocardiogram was considered but not ordered at it was felt that it might delay appropriate treatment. Past Medical History Cardiac Medical History: Reports: Congestive Heart Failure, DVT, Hyperlipidema, Hypertension, Peripheral Vascular Disease Endocrine Medical History: Reports: Diabetes Mellitus Type 2, Hypothyroidism Renal/ Medical History: Reports: Chronic Kidney Disease Psychiatric Medical History: Denies: Depression Hematology: Reports: Anemia Past Surgical History Past Surgical History: Reports: Orthopedic Surgery - Back surgery, Vascular Surgery - Aneurysm Lt calf, Other - 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 Social History Information Source: Patient Smoking Status: Never Smoker Frequency of Alcohol Use: Rare Hx Recreational Drug Use: No - Advance Directive Resuscitation Status: Full Code Surrogate healthcare decision maker:: Patient's is the surrogate decision-maker Family History Family History: Hypertension Parental Family History Reviewed: Yes Children Family History Reviewed: Yes Sibling(s) Family History Reviewed.: Yes Medication/Allergy Home Medications: Allopurinol [Zyloprim] 300 mg PO DAILY 09/20/17 Amlodipine Besylate [Norvasc 10 mg Tablet] 10 mg PO DAILY 09/20/17 Aspirin [Aspirin EC] 81 mg PO DAILY 09/20/17 Benazepril HCl [Lotensin 20 mg Tablet] 20 mg PO DAILY 09/20/17 Clonidine HCl [Catapres 0.2 mg Tablet] 0.2 mg PO Q12 09/20/17 Clopidogrel Bisulfate [Plavix 75 mg Tablet] 75 mg PO DAILY 09/20/17 Docusate Sodium [Colace 100 mg Capsule] 100 mg PO DAILY 09/20/17 Ferrous Sulfate [Feosol 325 mg Tablet] 325 mg PO TID 09/20/17 Glipizide [Glucotrol 5 mg Tablet] 5 mg PO BID 09/20/17 Hydralazine HCl [Apresoline 50 mg Tablet] 50 mg PO Q8 09/20/17 Levothyroxine Sodium [Synthroid 0.025 mg Tablet] 0.025 mg PO Q6AM 09/20/17 Metoprolol Tartrate [Lopressor 25 mg Tablet] 25 mg PO Q12 09/20/17 [place]-3 Acid Ethyl Esters [Lovaza 1 gm Capsule] 2 gm PO DAILY 09/20/17 Pantoprazole Sodium [Protonix] 40 mg PO DAILY 09/20/17 Potassium Chloride [Klor-Con 10 Meq Tablet.sa] 10 meq PO DAILY 09/20/17 Simvastatin [Zocor 20 mg Tablet] 20 mg PO QHS 09/20/17 Furosemide [Furosemide] 20 mg PO DAILY 09/21/17 Allergies/Adverse Reactions: No Known Allergies Allergy (Verified 04/09/12 16:27) Review of Systems Review of Systems: Please see history of present illness and past medical history as wall. Constitutional: No fever or chills reported. Head : No recent chronic headaches, recent head injury. Eyes: No recent eye pain, diplopia, redness, discharge, acute visual changes. Ears: No recent chronic ear pain, acute hearing loss, ear discharge. Oral cavity: No recent ulcerations, bleeding, oral cavity discomfort. Neck: No recent acute neck pain reported. Hematologic: No recent easy bruising or bleeding or hematologic malignancy reported. Lymphatic: No recent lymphatic malignancy, chronic lymphadenopathy reported yet Cardiovascular system review: See history of present illness. Respiratory system review: No recent chronic cough, hemoptysis, blood clots in the lungs reported. Shortness of breath on exertion Gastrointestinal system review: Negative for any recent acute or chronic abdominal pain, hematemesis, melena, recent change in bowel habits. Genitourinary system review: No recent acute or chronic hematuria, flank pain, UTI etc. reported. Skin system review: Negative for any recent abnormal bruising, no rash, no pruritus reported. Neurologic: No prior history of strokes, mini strokes, seizure disorder. Psychologic: No history of major psychosis or major depression reported. Musculoskeletal: Minor aches and pains reported. No acute joint swelling reported. Endocrine: No recent polyuria, polydipsia, recent heat or cold intolerance. Physical Exam Vital Signs: Temp Pulse Resp BP Pulse Ox 97.8 F 70 18 159/93 H 97 09/21/17 10:24 09/21/17 10:24 09/21/17 10:24 09/21/17 10:24 09/21/17 10:24 Intake & Output 09/20/17 09/21/17 09/22/17 06:59 06:59 06:59 Intake Total 420 Output Total 350 Balance 70 Exam: GENERAL: well-nourished and in no acute distress. Alert and oriented x3 HEAD: Atraumatic, normocephalic. EYES: Pupils equal round and reactive to light, extraocular movements intact, sclera anicteric, conjunctiva are normal. ENT: TMs normal, nares patent, oropharynx clear without exudates. Moist mucous membranes. No oral ulcerations or bleeding gums noted NECK: supple without lymphadenopathy. Trachea is central. No cervical or axillary lymphadenopathy noted. Carotids are 2+, JVD WNL LUNGS: Respiration seems nonlabored, no significant accessory muscle action noted. Breath sounds clear to auscultation bilaterally and equal noted. No wheezes rales or rhonchi noted. No significant dullness noted on percussion. CHEST: Palpation of the chest wall shows no significant chest wall tenderness. No other significant abnormalities noted. HEART: [place] WARP TENSION TESTER, No PSH, 1/6 JORGE L aortic area, 1/6 narayanan systolic murmur mitral area, no rubs, no gallops. ABDOMEN: Soft, no significant tenderness appreciated, normoactive bowel sounds. No guarding, no rebound. No rigidity noted . No masses appreciated. EXTREMITIES: Pedal pulses are 1-2+, no calf tenderness noted. No clubbing or cyanosis. negative pedal edema noted NEUROLOGICAL: Focused neurological exam showed no significant neurologic deficit. Normal speech, no focal weakness appreciated. PSYCH: Normal mood, normal affect. Judgment and insight within normal limits. SKIN: No significant ecchymosis, skin is noted to be warm. MUSCULOSKELETAL EXAM: No significant acute joint swelling noted. Results Laboratory Results: 09/21/17 04:40 09/21/17 04:40 09/21/17 09/21/17 04:40 04:40 WBC 7.6 RBC 5.12 Hgb 11.6 L Hct 37.5 L MCV 73 L MCH 22.7 L MCHC 30.9 L RDW 15.3 H Plt Count 177 Seg Neutrophils % 74.1 Lymphocytes % 16.2 Monocytes % 6.3 Eosinophils % 2.4 Basophils % 1.0 Absolute Neutrophils 5.6 Absolute Lymphocytes 1.2 Absolute Monocytes 0.5 Absolute Eosinophils 0.2 Absolute Basophils 0.1 Sodium 144.0 Potassium 3.8 Chloride 108 H Carbon Dioxide 26 Anion Gap 10 BUN 22 H Creatinine 1.17 Est GFR ( Amer) > 60 Est GFR (Non-Af Amer) > 60 Glucose 98 Calcium 8.9 Impressions: Chest X-Ray 09/20/17 18:19 IMPRESSION: Enlarged thoracic aorta contour, chronic appearing. No acute pulmonary finding. Head CT 09/20/17 18:21 IMPRESSION: No acute intracranial findings. EVIDENCE OF ACUTE STROKE: No Chest/Abdomen CTA 09/21/17 00:00 IMPRESSION: Descending thoracic aortic dissecting aneurysm extending into the upper abdominal visceral vessels. Assessment & Plan - Diagnosis (1) Dissecting aortic aneurysm, thoracic Is this a current diagnosis for this admission?: Yes (2) Hyperlipidemia Qualifiers: Hyperlipidemia type: other hyperlipidemia Qualified Code(s): E78.4 - Other hyperlipidemia Is this a current diagnosis for this admission?: Yes (3) Hypertension Qualifiers: Hypertension type: essential hypertension Qualified Code(s): I10 - Essential (primary) hypertension Is this a current diagnosis for this admission?: Yes (4) Hypertensive urgency Is this a current diagnosis for this admission?: Yes (5) PAD (peripheral artery disease) Is this a current diagnosis for this admission?: Yes (6) Type 2 diabetes mellitus Qualifiers: Diabetes mellitus intermediate insulin use: unspecified intermediate insulin use status Diabetes mellitus complication status: with unspecified complications Qualified Code(s): E11.8 - Type 2 diabetes mellitus with unspecified complications Is this a current diagnosis for this admission?: Yes - Notes Notes: Patient was seen on the third floor and also when he was moved to the unit. On the third floor it was noted that his CT chest showed dissecting aneurysm of the descending thoracic aorta. Patient blood pressure was noted to be extremely elevated. Orders were given for patient to receive IV labetalol 20 mg. Patient also in the process of being transferred to the unit and subsequently to [facility]. Also verbal order was given for the patient to be started on esmolol drip. Nurse was also advised to give patient his home dose of clonidine and metoprolol succinate. Subsequently on transfer to the unit his blood pressure remained very stable and he was transferred without incident in between 2 [facility]. It was felt that patient had a life-threatening emergency. CT scan results were reviewed. Patient's life-threatening condition discussed with the patient. His questions were answered. Patient was subsequently transferred to the unit and to widen to [facility] without any adverse incident. - Time Time Spent: 30 to 50 Minutes - CODE STATUS was discussed, patient remains full code. Surrogate decision-maker unchanged. Multiple medical problems were addressed. More than 50% of the time spent coordinating care, discussing management plans with involved caregivers. Management plans discussed with involved personnels. Medical decision making was of moderate to high complexity , patient's has multiple comorbidities. Medications reviewed and adjusted accordingly: Yes
== END 2017-09-21 11:07 | disposition short-term general hospital (02) | DRG 300 ==
LOC: ER 17:32 → EH 19:11 → OBSVTOIN 19:31 → 3W 20:14 → ICU 09-21 10:04
PROVIDERS: ADMIT Family Medicine; ATTEND Family Medicine
DX: I71.01 Dissection of thoracic aorta (principal); I13.0 Hypertensive heart and chronic kidney disease with heart failure and stage 1 through stage 4 chronic kidney disease, or unspecified chronic kidney disease; I50.32 Chronic diastolic (congestive) heart failure; I16.0 Hypertensive urgency; E11.22 Type 2 diabetes mellitus with diabetic chronic kidney disease; N18.9 Chronic kidney disease, unspecified; E78.5 Hyperlipidemia, unspecified; E11.51 Type 2 diabetes mellitus with diabetic peripheral angiopathy without gangrene; D64.9 Anemia, unspecified; E03.9 Hypothyroidism, unspecified; Z79.82 Long term (current) use of aspirin; Z91.19 Patient's noncompliance with other medical treatment and regimen; Z86.718 Personal history of other venous thrombosis and embolism; Z79.84 Long term (current) use of oral hypoglycemic drugs; Z79.899 Other long term (current) drug therapy
CPT/HCPCS: 36415; 70450; 71045; 71275; 80048; 80053; 81001; 82553; 82962; 84443; 84484; 85025; 93005; 93010; 96374; 99285; J0360; J3490

== ENCOUNTER → 2017-09-20 | Outpatient (CLI) | payer MEDICARE ==
[2017-09-20 14:15] LABS: ABSOLUTE EOSINOPHILS # (AUTO) 0.1 10^3/uL (0.0-0.6); ABSOLUTE LYMPHOCYTES (AUTO) 1.3 10^3/uL (0.5-4.7); ABSOLUTE MONOCYTES (AUTO) 0.4 10^3/uL (0.1-1.4); ABSOLUTE NEUT (AUTO) 6.4 10^3/uL (1.7-8.2); BASOPHILS % (AUTO) 0.4 % (0-2); HEMATOCRIT 39.1 % (37.9-51.0); HEMOGLOBIN 12.2 g/dL (13.5-17.0); LYMPHOCYTES % (AUTO) 15.6 % (13-45); MEAN CORPUSCULAR HGB CONC 31.3 g/dL (32.0-36.0); MEAN CORPUSCULAR VOLUME 73 fl (80-97); MONOCYTES % (AUTO) 4.4 % (3-13); PLATELET COUNT 194 10^3/uL (150-450); RED BLOOD COUNT 5.32 10^6/uL (4.35-5.55); RED CELL DISTRIBUTION WIDTH 15.3 % (11.5-14.0); SEGMENTED NEUTROPHILS % (AUTO) 78.6 % (42-78); TOTAL CELLS COUNTED % (AUTO) 100 %; WHITE BLOOD COUNT 8.2 10^3/uL (4.0-10.5)
[2017-09-20 14:42] LABS: ALANINE AMINOTRANSFERASE 19 U/L (21-72); ALBUMIN 3.9 g/dL (3.5-5.0); ALKALINE PHOSPHATASE 192 U/L (38-126); ANION GAP 13 (5-19); ASPARTATE AMINO TRANSFERASE 13 U/L (17-59); BILIRUBIN,DIRECT 0.2 mg/dL (0.0-0.4); BILIRUBIN,TOTAL 0.3 mg/dL (0.2-1.3); BLOOD UREA NITROGEN 25 mg/dL (7-20); CALCIUM 9.4 mg/dL (8.4-10.2); CARBON DIOXIDE 25 mmol/L (22-30); CHLORIDE 112 mmol/L (98-107); GLUCOSE 182 mg/dL (75-110); SODIUM 149.9 mmol/L (137-145); TOTAL PROTEIN 6.9 g/dL (6.3-8.2)
== END ==
LOC: OD 13:13
PROVIDERS: ATTEND Family Medicine
DX: I10 Essential (primary) hypertension (principal)
CPT/HCPCS: 36415; 80053; 85025